=== PATIENT | male | born 1990 | race Caucasian/White ===

== ENCOUNTER 2021-01-27 19:36 | Emergency (ER) | payer SELFPAY ==
[~2021-01-27] VITALS: Ht 175.3 cm; Wt 75.0 kg
[2021-01-27 19:37] VITALS: BP 126/73
[2021-01-27] MEDS ORDERED: LIDOCAINE-MPF 1%, 5ML ONE (19:51)
[2021-01-27] MEDS ORDERED: DIPH,PERTUSS(ACELL),TET VAC/PF 0.5 ML IM-VACC ONE ×2 (19:52→20:00)
[2021-01-27] MEDS ORDERED: LIDOCAINE-MPF 1%, 5ML INFIL ONE (20:00)
[2021-01-27] MEDS ORDERED: NEOSPORIN OINT. PKT 1 PACKET ONE (20:37)
--- NOTE | 2021-01-27 20:45 | NUR ---
DISCHARGE INSTRUCTIONS REVIEWED WITH PT. ALL QUESTIONS ANSWERED AT THIS TIME.
== END 2021-01-27 20:48 | disposition home or self-care (01) ==
LOC: ED 19:54
DX: S01.81XA Laceration without foreign body of other part of head, initial encounter (principal); W21.05XA Struck by basketball, initial encounter; Y93.67 Activity, basketball; Y92.328 Other athletic field as the place of occurrence of the external cause; Y99.8 Other external cause status
CPT/HCPCS: 12051; 99284